=== PATIENT | male | born 1995 | race Caucasian/White ===

== ENCOUNTER → 2018-02-22 | Emergency (ER) | payer SELFPAY ==
[2018-02-22 22:06] VITALS: BP 114/58; PULSE 71; TEMP 98.4; BMI 25.7
--- NOTE | 2018-02-22 22:06 | PDOC ---
Rapid Medical Evaluation Time Seen by Provider: 02/22/18 22:00 Medical Evaluation: 02/22/18 22:00 I have performed a brief in-person evaluation of this patient. The patient presents with a chief complaint of: haven't been feeling well past few weeks, abdominal pain started today, sent in by [facility], +nausea, no vomiting, "excessive burping and flatulence", last BM today, WBC 22 Pertinent physical exam findings: RLQ tenderness I have ordered the following: labs, ct The patient will proceed to the ED for further evaluation. Discharge Disposition - Diagnosis Abdominal pain - Referrals - Patient Instructions - Post Discharge Activity
== END | disposition left against medical advice (07) ==
LOC: JER 21:32
DX: R10.84 Generalized abdominal pain (principal)
CPT/HCPCS: 99281-25